=== PATIENT | female | born 1945 | race Caucasian/White ===

== ENCOUNTER 2023-10-31 14:27 | Emergency (ER) | payer MEDICARE, BC ==
[~2023-10-31] VITALS: Ht 160 cm; Wt 66.2 kg
[2023-10-31 21:08] VITALS: BP 130/68; PULSE 78; RESP 18; TEMP 97.7; O2SAT 96
== END 2023-10-31 21:10 | disposition home or self-care (01) ==
LOC: ER 14:28
DX: M71.22 Synovial cyst of popliteal space [Baker], left knee (principal)
CPT/HCPCS: 93971; 99284